=== PATIENT | female | born 1965 | race Caucasian/White ===

== ENCOUNTER 2021-04-01 11:32 | Emergency (ER) | payer MEDICAID ==
--- NOTE | 2021-04-01 12:24 | EDM.PDOC ---
ED HPI GENERAL MEDICAL PROBLEM - General Chief Complaint: Neurological Problem Stated Complaint: VISION PROBLEMS,TINGLY FACE Time Seen by Provider: 04/01/21 12:01 Source of Information: Reports: Patient, Family, RN Notes Reviewed History Limitations: Reports: No Limitations - History of Present Illness INITIAL COMMENTS - FREE TEXT/NARRATIVE: 55-year-old female presents emergency department day complaint of change in vision, this event initially happened around 1030 today the episodes are very brief in nature and then they resolved back to normal. What she describes is flashing lights or clear like sensation lateral aspects left eye they are very brief and then will resolve she has no difficulty with her vision she is not describing any motor deficit she does describe having a headache that is bilateral has a history of migraines however migraines are always unilateral. No nausea vomiting shortness of breath or chest pains Headache Pain Score (Numeric/FACES): 5 - Related Data Allergies Allergy/AdvReac Type Severity Reaction Status Date / Time naproxen Allergy Cannot Verified 04/01/21 11:51 Remember nifedipine [From Adalat] Allergy Swelling Verified 04/01/21 11:51 Home Meds: Home Meds Diclofenac Sodium [Voltaren] 50 mg PO BID 11/06/20 [History] Insulin Aspart [NovoLOG] 0 units SQ ASDIRECTED 11/06/20 [History] Insulin Glarg,Human.Rec.Analog [Lantus Solostar] 10 - 14 units SQ DAILY 11/06/20 [History] Simvastatin 40 mg PO DAILY 11/06/20 [History] hydroCHLOROthiazide [Hydrochlorothiazide] 25 mg PO DAILY 11/06/20 [History] metFORMIN [Glucophage] 1,000 mg PO BID 11/06/20 [History] Past Medical History HEENT History: Reports: Impaired Vision Cardiovascular History: Reports: Hypertension [employer] History: Reports: Musculoskeletal History: Reports: Arthritis, Fracture Neurological History: Reports: Migraines Endocrine/Metabolic History: Reports: Diabetes, Type II - Past Surgical History GI Surgical History: Reports: Appendectomy Female Surgical History: Reports: Section, Hysterectomy Social & Family History - Tobacco Use Tobacco Use Status *Q: Light Tobacco User Years of Tobacco use: 30 Packs/Tins Daily: 0.5 - Caffeine Use Caffeine Use: Reports: Coffee - Recreational Drug Use Recreational Drug Use: No ED ROS ENT - Review of Systems Review Of Systems: See Below Constitutional: Reports: No Symptoms HEENT: Reports: Vision Change Respiratory: Reports: No Symptoms Cardiovascular: Reports: No Symptoms GI/Abdominal: Reports: No Symptoms Neurological: Reports: No Symptoms ED EXAM, ENT - Physical Exam Exam: See Below Exam Limited By: No Limitations General Appearance: Alert, WD/WN, No Apparent Distress Eye Exam: Bilateral Eye: EOMI, Normal Fundi, Normal Inspection, PERRL Respiratory/Chest: No Respiratory Distress Cardiovascular: Regular Rate, Rhythm Neurological: Alert, Oriented, CN II-XII Intact, Normal Cognition, Normal Gait, No Motor/Sensory Deficits Course - Vital Signs Last Recorded V/S: Last Vital Signs Temp 98 F 04/01/21 11:50 Pulse 51 L 04/01/21 11:50 Resp 16 04/01/21 11:50 BP 170/83 H 04/01/21 11:50 Pulse Ox 100 04/01/21 11:50 Departure - Departure Time of Disposition: 12:23 Disposition: DC/Tfer to Other 70 Condition: Fair Clinical Impression: Change in vision - Discharge Information Instructions: Visual Disturbances Referrals: Phyllis Bull PA [Primary Care Provider] - Additional Instructions: Please report to Dr. Goncalves's for further evaluation your appointment is at 215 today Sepsis Event Note (ED) - Evaluation Sepsis Screening Result: No Definite Risk - Focused Exam Vital Signs: Vital Signs Temp Pulse Resp BP Pulse Ox 04/01/21 11:50 98 F 51 L 16 170/83 H 100 - Assessment/Plan Plan: Assessment Acuity = acute Site and laterality = change in vision Etiology = unknown Manifestations = none Location of injury = Home Lab values = none Plan I did call Dr[facility] who kindly agreed to see the patient at 215 this afternoon for further evaluation This note was dictated using [employer] voice recognition software please call with any questions on syntax or grammar.
== END 2021-04-01 12:40 | disposition home or self-care (01) ==
LOC: JP.ED 11:32
DX: H53.9 Unspecified visual disturbance (principal); I10 Essential (primary) hypertension; E11.9 Type 2 diabetes mellitus without complications; Z79.4 Long term (current) use of insulin; Z88.5 Allergy status to narcotic agent; Z88.8 Allergy status to other drugs, medicaments and biological substances; Z72.0 Tobacco use
CPT/HCPCS: 93005; 99284-25

== ENCOUNTER 2022-05-31 12:57 | Emergency (ER) | payer MEDICAID ==
[2022-05-31] MEDS ORDERED: Aspirin 81 MG Tab.Chew PO ONE (13:19)
[2022-05-31 13:55] LABS: ESTIMATED GFR 104 mL/min (>60)
[2022-05-31 13:58] LABS: TROPONIN I HIGH SENSITIVITY 6404.9 pg/mL (<=60.3)
[2022-05-31] MEDS ORDERED: Sodium Chloride 0.9% 10 ML Syringe FLUSH PRN (14:03)
[2022-05-31] MEDS ORDERED: Heparin Sodium 5,000 Units/ML Vial IVPUSH ONE (14:03)
[2022-05-31] MEDS ORDERED: Heparin Sodium/D5W 25,000 UNITS/500 ML BAG IV SCH (14:15)
[2022-05-31] MEDS ORDERED: LORazepam 2 MG/ML SDV IVPUSH ONE (14:17)
[2022-05-31 14:41] LABS: TROPONIN I HIGH SENSITIVITY 7046.3 pg/mL (<=60.3)
== END 2022-05-31 14:55 ==
LOC: JP.ED 12:57
DX: I21.4 Non-ST elevation (NSTEMI) myocardial infarction (principal); E11.9 Type 2 diabetes mellitus without complications; I10 Essential (primary) hypertension; Z88.5 Allergy status to narcotic agent; Z88.8 Allergy status to other drugs, medicaments and biological substances; Z79.4 Long term (current) use of insulin; Z79.899 Other long term (current) drug therapy; Z20.822 Contact with and (suspected) exposure to COVID-19
CPT/HCPCS: 36415; 71046; 80048; 80053; 83690; 84484; 85025; 85610; 85730; 87635; 93005; 96365; 96376; 99285; A9270; J1644; J2060; J3490; U0002

== ENCOUNTER 2022-06-17 14:52 | Emergency (ER) | payer MEDICAID ==
[2022-06-17] MEDS ORDERED: traMADol 50 MG Tab PO ONE (16:07)
== END 2022-06-17 17:05 | disposition home or self-care (01) ==
LOC: JP.ED 14:52
DX: R60.0 Localized edema (principal); I10 Essential (primary) hypertension; E11.9 Type 2 diabetes mellitus without complications; Z88.8 Allergy status to other drugs, medicaments and biological substances; Z79.4 Long term (current) use of insulin; Z79.82 Long term (current) use of aspirin; Z79.899 Other long term (current) drug therapy
CPT/HCPCS: 93971-LT; 99283; A9270-GY

== ENCOUNTER 2022-11-17 03:15 | Emergency (ER) | payer MEDICAID ==
[2022-11-17] MEDS ORDERED: Aspirin 81 MG Tab.Chew PO ONE (03:26)
[2022-11-17] MEDS ORDERED: Ondansetron 4 MG/2 ML SDV IVPUSH ONE (03:27)
[2022-11-17] MEDS ORDERED: Sodium Chloride 0.9% 10 ML Syringe FLUSH PRN (03:27)
[2022-11-17] MEDS ORDERED: Nitroglycerin 0.4 MG Tab.SL SL ONE (03:28)
[2022-11-17 04:05] LABS: BASOPHILS ABSOLUTE AUTO 0.04 K/uL (0.00-0.10); BASOPHILS PERCENT AUTO 0.6 % (0.1-1.3); EOSINOPHILS ABSOLUTE AUTO 0.15 K/uL (0.00-0.40); EOSINOPHILS PERCENT AUTO 2.4 % (0.0-5.4); HEMATOCRIT 35.6 % (34.3-46.0); HEMOGLOBIN 11.8 g/dL (11.2-15.5); IMMATURE GRAN PERCENT AUTO 0.3 % (0.0-0.7); LYMPHOCYTES ABSOLUTE AUTO 2.84 K/uL (0.8-3.3); LYMPHOCYTES PERCENT AUTO 45.9 % (11.4-47.7); MEAN CORPUSCULAR HEMOGLOBIN 27.3 pg (31.6-35.5); MEAN CORPUSCULAR HGB CONC 33.1 g/dL (31.6-35.5); MEAN CORPUSCULAR VOLUME 82.4 fL (81.4-99.0); MONOCYTES ABSOLUTE AUTO 0.37 K/uL (0.20-0.90); NEUTROPHILS ABSOLUTE AUTO 2.77 K/uL (1.0-7.6); NEUTROPHILS PERCENT AUTO 44.8 % (40.0-78.1); PLATELET COUNT,PLT 327 K/uL (130-375); RED BLOOD CELL COUNT 4.32 M/uL (3.77-5.24); WHITE BLOOD CELL COUNT,WBC 6.2 K/uL (3.2-11.0)
[2022-11-17 04:07] LABS: IMMATURE GRAN ABSOLUTE AUTO 0.02 K/uL (0.00-0.23)
[2022-11-17 04:27] LABS: PROTHROMBIN TIME 9.9 sec (9.2-10.6)
[2022-11-17 04:30] LABS: ANION GAP 11.5 mmol/L (5.0-14.0); BLOOD UREA NITROGEN,BUN 14 mg/dL (7-18); CALCIUM 9.3 mg/dL (8.5-10.1); CARBON DIOXIDE,CO2 25 mmol/L (21-32); CHLORIDE,CL 105 mmol/L (100-108); CREATININE 0.8 mg/dL (0.6-1.0); ESTIMATED GFR 85 mL/min (>60); GLUCOSE RANDOM 160 mg/dL (74-106); SODIUM,NA 141 mmol/L (140-148); TROPONIN I HIGH SENSITIVITY 10.8 pg/mL (<=60.3)
== END 2022-11-17 05:11 | disposition home or self-care (01) ==
LOC: JP.ED 03:15
DX: I25.10 Atherosclerotic heart disease of native coronary artery without angina pectoris (principal); I10 Essential (primary) hypertension; E78.5 Hyperlipidemia, unspecified; E11.9 Type 2 diabetes mellitus without complications; Z95.1 Presence of aortocoronary bypass graft; Z88.8 Allergy status to other drugs, medicaments and biological substances; Z79.4 Long term (current) use of insulin; Z79.84 Long term (current) use of oral hypoglycemic drugs; Z79.82 Long term (current) use of aspirin; Z79.899 Other long term (current) drug therapy
CPT/HCPCS: 36415; 71045; 80048; 83880; 84484; 85025; 85379; 85610; 85730; 93005; 96374; 99285; A9270; J2405; J3490

== ENCOUNTER 2023-09-23 16:17 | Emergency (ER) | payer MEDICAID ==
[2023-09-23 16:55] LABS: BASOPHILS ABSOLUTE AUTO 0.04 K/uL (0.00-0.10); BASOPHILS PERCENT AUTO 0.6 % (0.1-1.3); EOSINOPHILS ABSOLUTE AUTO 0.12 K/uL (0.00-0.40); EOSINOPHILS PERCENT AUTO 1.9 % (0.0-5.4); HEMATOCRIT 34.5 % (34.3-46.0); HEMOGLOBIN 11.2 g/dL (11.2-15.5); IMMATURE GRAN ABSOLUTE AUTO 0.01 K/uL (0.00-0.23); IMMATURE GRAN PERCENT AUTO 0.2 % (0.0-0.7); LYMPHOCYTES ABSOLUTE AUTO 2.35 K/uL (0.8-3.3); LYMPHOCYTES PERCENT AUTO 36.3 % (11.4-47.7); MEAN CORPUSCULAR HEMOGLOBIN 26.5 pg (31.6-35.5); MEAN CORPUSCULAR HGB CONC 32.5 g/dL (31.6-35.5); MEAN CORPUSCULAR VOLUME 81.8 fL (81.4-99.0); MONOCYTES ABSOLUTE AUTO 0.39 K/uL (0.20-0.90); NEUTROPHILS ABSOLUTE AUTO 3.56 K/uL (1.0-7.6); PLATELET COUNT,PLT 317 K/uL (130-375); RED BLOOD CELL COUNT 4.22 M/uL (3.77-5.24); WHITE BLOOD CELL COUNT,WBC 6.5 K/uL (3.2-11.0)
[2023-09-23] MEDS: Aspirin 81 MG Tab.EC PO ONE (17:08)
[2023-09-23 17:09] LABS: CALCIUM 9.7 mg/dL (8.5-10.1); CREATININE 0.9 mg/dL (0.6-1.0); EST CRCL DRUG DOSING (CG) 57.4 mL/min; MAGNESIUM 1.5 mg/dL (1.8-2.4); POTASSIUM,K 3.3 mmol/L (3.6-5.2); TROPONIN I HIGH SENSITIVITY 9.9 pg/mL (<=60.3)
[2023-09-23] MEDS: Nitroglycerin 0.4 MG Tab.SL SL PRN (17:09)
[2023-09-23 17:27] LABS: ANION GAP 16.3 mmol/L (5.0-14.0)
[2023-09-23] MEDS: Ticagrelor 90 MG Tab PO ONE (17:29)
[2023-09-23 17:44] LABS: PROTHROMBIN TIME 9.9 sec (9.2-10.6); PTT,PARTIAL THROMBOPLSTIN TIME 22.6 sec (21.8-27.3)
[2023-09-23] MEDS: Magnesium Oxide 400 MG Tab PO ONE (18:15)
[2023-09-23] MEDS: Potassium Chloride 20 MEQ Tab.ER PO ONE (18:15)
== END 2023-09-23 19:37 | disposition home or self-care (01) ==
LOC: JP.ED 16:17
DX: R07.89 Other chest pain (principal); I10 Essential (primary) hypertension; I25.2 Old myocardial infarction; E11.9 Type 2 diabetes mellitus without complications; Z88.6 Allergy status to analgesic agent; Z88.8 Allergy status to other drugs, medicaments and biological substances; Z86.19 Personal history of other infectious and parasitic diseases; Z87.891 Personal history of nicotine dependence; Z79.4 Long term (current) use of insulin; Z79.899 Other long term (current) drug therapy; Z79.82 Long term (current) use of aspirin; Z79.84 Long term (current) use of oral hypoglycemic drugs
CPT/HCPCS: 36415; 71046; 80048; 83735; 84484; 85025; 85610; 85730; 93005; 99285; A9270

== ENCOUNTER 2024-07-23 20:28 | Inpatient (IN) | payer MEDICAID ==
[2024-07-23] MEDS: HYDROmorphone 0.5 MG/0.5 ML Syringe IVPUSH ONE (21:45)
[2024-07-23] MEDS: Sodium Chloride 0.9% 1,000 ML IV ONE (21:45)
[2024-07-23] MEDS: Piperacillin/Tazobactam 4.5 GM in Sodium Chloride 0.9% 100 ML IV ONE (21:45)
[2024-07-23] MEDS: Ondansetron 4 MG/2 ML SDV IVPUSH ONE (21:45)
[2024-07-23 21:47] LABS: BASOPHILS ABSOLUTE AUTO 0.03 K/uL (0.00-0.10); BASOPHILS PERCENT AUTO 0.2 % (0.1-1.3); EOSINOPHILS ABSOLUTE AUTO 0.16 K/uL (0.00-0.40); EOSINOPHILS PERCENT AUTO 1.1 % (0.0-5.4); HEMOGLOBIN 10.5 g/dL (11.2-15.5); IMMATURE GRAN ABSOLUTE AUTO 0.05 K/uL (0.00-0.23); IMMATURE GRAN PERCENT AUTO 0.4 % (0.0-0.7); LYMPHOCYTES ABSOLUTE AUTO 1.58 K/uL (0.8-3.3); LYMPHOCYTES PERCENT AUTO 11.2 % (11.4-47.7); MEAN CORPUSCULAR HEMOGLOBIN 28.7 pg (31.6-35.5); MEAN CORPUSCULAR HGB CONC 32.8 g/dL (31.6-35.5); MEAN CORPUSCULAR VOLUME 87.4 fL (81.4-99.0); MONOCYTES ABSOLUTE AUTO 0.78 K/uL (0.20-0.90); MONOCYTES PERCENT AUTO 5.5 % (3.3-12.6); NEUTROPHILS ABSOLUTE AUTO 11.53 K/uL (1.0-7.6); NEUTROPHILS PERCENT AUTO 81.6 % (40.0-78.1); PLATELET COUNT,PLT 355 K/uL (130-375); RED BLOOD CELL COUNT 3.66 M/uL (3.77-5.24); WHITE BLOOD CELL COUNT,WBC 14.1 K/uL (3.2-11.0)
[2024-07-23 22:10] LABS: A/G RATIO 0.8 (1.2-2.2); ALANINE AMINOTRANSFERASE,ALT 22 U/L (12-78); ALBUMIN 3.1 g/dL (3.4-5.0); ALKALINE PHOSPHATASE 82 U/L (46-116); ANION GAP 16.6 mmol/L (5.0-14.0); ASPARTATE AMNIOTRANSFERASE,AST 14 U/L (15-37); BILIRUBIN TOTAL 0.6 mg/dL (0.2-1.0); BLOOD UREA NITROGEN,BUN 11 mg/dL (7-18); CALCIUM 9.9 mg/dL (8.5-10.1); CARBON DIOXIDE,CO2 24 mmol/L (21-32); CHLORIDE,CL 100 mmol/L (100-108); CREATININE 0.9 mg/dL (0.6-1.0); ESTIMATED GFR 73 mL/min (>60); GLUCOSE RANDOM 158 mg/dL (74-106); POTASSIUM,K 3.6 mmol/L (3.6-5.2); PROTEIN TOTAL,TP 7.1 g/dL (6.4-8.2); SODIUM,NA 137 mmol/L (140-148)
[2024-07-23] MEDS: Sodium Chloride 0.9% 80 ML IV SCH (22:10)
[2024-07-23] MEDS: Iopamidol 612 MG/ML 100 ML Bottle IV SCH (22:10)
[2024-07-23] MEDS: Piperacillin/Tazobactam 4.5 GM AdvVial ONE (22:12)
[2024-07-23] MEDS: Sodium Chloride 0.9% 100 ML ONE (22:12)
[2024-07-24] MEDS ORDERED: Ondansetron 4 MG/2 ML SDV IV PRN (00:14)
[2024-07-24] MEDS ORDERED: LORazepam 0.5 MG Tab PO PRN (00:14)
[2024-07-24] MEDS ORDERED: Acetaminophen 325 MG Tab PO PRN (00:14)
[2024-07-24] MEDS ORDERED: HYDROmorphone 0.5 MG/0.5 ML Syringe IVPUSH PRN (00:14)
[2024-07-24] MEDS: Sodium Chloride 0.9% 1,000 ML IV SCH (00:44)
[2024-07-24] MEDS: Melatonin 3 MG Tab PO PRN (00:52)
[2024-07-24] MEDS: Acetaminophen/HYDROcodone 325-5 MG Tab PO PRN (00:53)
[2024-07-24] MEDS: Sennosides/Docusate Sodium 50-8.6 MG Tab PO PRN (00:54)
[2024-07-24] MEDS: Piperacillin/Tazobactam 4.5 GM in Sodium Chloride 0.9% 100 ML IV SCH (01:57)
[2024-07-24] MEDS: Ondansetron 4 MG Tab.DIS PO PRN (05:56)
[2024-07-24 06:02] LABS: HEMATOCRIT 27.4 % (34.3-46.0); MEAN CORPUSCULAR HEMOGLOBIN 28.8 pg (31.6-35.5); MEAN CORPUSCULAR HGB CONC 32.8 g/dL (31.6-35.5); MEAN CORPUSCULAR VOLUME 87.8 fL (81.4-99.0); RED BLOOD CELL COUNT 3.12 M/uL (3.77-5.24); WHITE BLOOD CELL COUNT,WBC 11.4 K/uL (3.2-11.0)
[2024-07-24 06:22] LABS: CALCIUM 9.3 mg/dL (8.5-10.1); CREATININE 0.7 mg/dL (0.6-1.0); EST CRCL DRUG DOSING (CG) 73.8 mL/min; POTASSIUM,K 4.2 mmol/L (3.6-5.2)
[2024-07-24 06:23] LABS: ANION GAP 12.2 mmol/L (5.0-14.0)
[2024-07-24] MEDS: Insulin Lispro 100 Unit/ML 3 ML KwikPen SUBCUT SCH (08:31)
[2024-07-24] MEDS: Insulin Glargine,Human Rec. Analog 100 Units/ML 3 ML Pen SUBCUT SCH (08:32)
[2024-07-24] MEDS: metFORMIN 500 MG Tab PO SCH (08:35)
[2024-07-24] MEDS: Clopidogrel 75 MG Tab PO SCH (08:35)
[2024-07-24] MEDS: Furosemide 20 MG Tab PO SCH (08:35)
[2024-07-24] MEDS: Aspirin 81 MG Tab.Chew PO SCH (08:35)
[2024-07-24] MEDS: Lactobacillus Rhamnosus GG (Probiotic) Cap PO SCH (08:35)
[2024-07-24] MEDS: FLUoxetine 10 MG Cap PO SCH (08:35)
[2024-07-24] MEDS: valACYclovir 500 MG Tab PO SCH (08:36)
[2024-07-24] MEDS: Piperacillin/Tazobactam/Dext 4.5 GM in Premix Bag 1 BAG IV SCH (10:08)
[2024-07-24] MEDS ORDERED: fentaNYL 100 MCG/2 ML SDV ONE (10:29)
[2024-07-24] MEDS ORDERED: Midazolam 1 MG/ML 2 ML SDV ONE (10:29)
[2024-07-24] MEDS ORDERED: Propofol 200 MG/20 ML SDV ONE (10:29)
[2024-07-24] MEDS: Bupivacaine 0.5% 50 ML MDV ONE (12:05)
[2024-07-24] MEDS: Lidocaine 1% with EPINEPHrine 1:100,000 50 ML MDV ONE (12:05)
[2024-07-24] MEDS: Enoxaparin 40 MG/0.4 ML Syringe SUBCUT SCH (14:36)
[2024-07-24] MEDS: Magnesium Oxide 400 MG Tab PO SCH (14:36)
[2024-07-24] MEDS: Pantoprazole 40 MG Tab.CR PO SCH (16:33)
[2024-07-24] MEDS: diphenhydrAMINE 50 MG/ML SDV IVPUSH STA (21:27)
[2024-07-24] MEDS: Isosorbide Mononitrate 30 MG Tab.ER PO SCH (21:29)
[2024-07-24] MEDS: atorvaSTATin 20 MG Tab PO SCH (21:30)
[2024-07-24] MEDS: Metoprolol Succinate 25 MG Tab.ER PO SCH (21:32)
[2024-07-25] MEDS: VANCOmycin 1.5 GM in Sodium Chloride 0.9% 250 ML IV ONE (00:50)
[2024-07-25] MEDS ORDERED: VANCOmycin 1 GM SDV IV SCH (01:30)
[2024-07-25] MEDS: Levofloxacin/Dextrose 5%-Water 500 MG in Premix Bag 1 BAG IV SCH (02:44)
[2024-07-25] MEDS: diphenhydrAMINE 25 MG Cap PO PRN (05:53)
[2024-07-25 05:54] LABS: HEMATOCRIT 27.5 % (34.3-46.0); HEMOGLOBIN 8.7 g/dL (11.2-15.5); MEAN CORPUSCULAR HEMOGLOBIN 28.1 pg (31.6-35.5); MEAN CORPUSCULAR HGB CONC 31.6 g/dL (31.6-35.5); MEAN CORPUSCULAR VOLUME 88.7 fL (81.4-99.0); RED BLOOD CELL COUNT 3.1 M/uL (3.77-5.24); WHITE BLOOD CELL COUNT,WBC 7.3 K/uL (3.2-11.0)
[2024-07-25 06:13] LABS: CALCIUM 8.8 mg/dL (8.5-10.1); CREATININE 0.7 mg/dL (0.6-1.0); EST CRCL DRUG DOSING (CG) 73.8 mL/min; MAGNESIUM 1.5 mg/dL (1.8-2.4); POTASSIUM,K 4.1 mmol/L (3.6-5.2)
[2024-07-25 06:17] LABS: ANION GAP 11.1 mmol/L (5.0-14.0)
[2024-07-25] MEDS: Magnesium Oxide 400 MG Tab PO SCH (08:22)
[2024-07-25] MEDS: Furosemide 20 MG Tab PO SCH (08:31)
[2024-07-25] MEDS: Magnesium Sulf/Wat 2 GM/50 mL 2 GM in Premix Bag 1 BAG IV SCH (08:44)
[2024-07-25] MEDS: Insulin Glargine,Human Rec. Analog 100 Units/ML 3 ML Pen SUBCUT SCH (10:15)
[2024-07-25] MEDS ORDERED: VANCOmycin 1.25 GM in Sodium Chloride 0.9% 250 ML IV SCH (13:00)
[2024-07-25] MEDS: VANCOmycin 1.25 GM in Sodium Chloride 0.9% 250 ML IV SCH (14:09)
[2024-07-26] MEDS: Famotidine 20 MG Tab PO ONE (00:40)
[2024-07-26] MEDS ORDERED: Polyethylene Glycol 3350 Powder 17 GM Packet PO PRN (05:02)
[2024-07-26] MEDS ORDERED: Sodium Chloride 0.9% 10 ML Syringe IV PRN (11:29)
[2024-07-26] MEDS: Magnesium Sulf/Wat 2 GM/50 mL 2 GM in Premix Bag 1 BAG IV SCH (11:30)
[2024-07-26] MEDS: Polyethylene Glycol 3350 Powder 17 GM Packet PO ONE (14:31)
[2024-07-26] MEDS: Levofloxacin 250 MG Tab PO SCH (21:19)
[2024-07-27] MEDS: metFORMIN 500 MG Tab PO SCH (08:56)
== END 2024-07-27 12:09 | disposition home or self-care (01) | DRG 863 ==
LOC: JP.ED 20:28 → JP.MS 23:21
PROVIDERS: ADMIT Registered Nurse; ATTEND Hospitalist
PROC: 0J9C0ZZ Drainage of Pelvic Region Subcutaneous Tissue and Fascia, Open Approach (ICD-10-PCS; principal; 2024-07-24 11:00)
DX: T81.49XA Infection following a procedure, other surgical site, initial encounter (principal); L02.214 Cutaneous abscess of groin; E11.9 Type 2 diabetes mellitus without complications; M19.90 Unspecified osteoarthritis, unspecified site; G43.909 Migraine, unspecified, not intractable, without status migrainosus; F41.9 Anxiety disorder, unspecified; B95.7 Other staphylococcus as the cause of diseases classified elsewhere; I10 Essential (primary) hypertension; Z79.4 Long term (current) use of insulin; I25.2 Old myocardial infarction; Z95.5 Presence of coronary angioplasty implant and graft; Z88.8 Allergy status to other drugs, medicaments and biological substances; Z79.84 Long term (current) use of oral hypoglycemic drugs; Z79.82 Long term (current) use of aspirin; Z79.899 Other long term (current) drug therapy; Z79.02 Long term (current) use of antithrombotics/antiplatelets; Z87.81 Personal history of (healed) traumatic fracture; Z95.1 Presence of aortocoronary bypass graft; Z98.890 Other specified postprocedural states; Z90.710 Acquired absence of both cervix and uterus
CPT/HCPCS: 36415; 74177; 80048; 80053; 82947; 83605; 83735; 85025; 85027; 86140; 87040; 87070; 87075; 87077; 87186; 87205; 96365; 96375; 99222; 99231; 99232; 99238; 99285; 99285-25; A9270-GY; J0665; J1200; J1650; J1815; J1815-GY; J1956; J2250; J2405; J2543; J2704; J3010; J3371; J3475; J7030; J7050; Q0162; Q9967